=== PATIENT | male | born 1965 | race American Indian/Alaskan Native ===

== ENCOUNTER 2021-06-02 10:20 | Outpatient (CLI) | payer SELFPAY ==
[2021-06-02] MEDS ORDERED: LIDOCAINE (4%) 40 MG/ML TOPICAL SOLN 50 ML BOTTLE TP ONE (12:06)
== END 2021-06-02 10:21 | disposition home or self-care (01) ==
LOC: WOUND 10:20
PROVIDERS: ATTEND Surgery
DX: L97.522 Non-pressure chronic ulcer of other part of left foot with fat layer exposed (principal); L97.512 Non-pressure chronic ulcer of other part of right foot with fat layer exposed; L84 Corns and callosities; I10 Essential (primary) hypertension; Z98.42 Cataract extraction status, left eye; Z98.41 Cataract extraction status, right eye
CPT/HCPCS: 11042; 82962; G0463; 99205

== ENCOUNTER 2021-06-09 10:47 | Outpatient (CLI) | payer SELFPAY ==
[2021-06-09] MEDS ORDERED: LIDOCAINE (4%) 40 MG/ML TOPICAL SOLN 50 ML BOTTLE TP ONE (11:05)
== END 2021-06-09 10:48 | disposition home or self-care (01) ==
LOC: WOUND 10:47
PROVIDERS: ATTEND Surgery
DX: L97.522 Non-pressure chronic ulcer of other part of left foot with fat layer exposed (principal); L97.512 Non-pressure chronic ulcer of other part of right foot with fat layer exposed; L84 Corns and callosities; I10 Essential (primary) hypertension; Z98.42 Cataract extraction status, left eye; Z98.41 Cataract extraction status, right eye
CPT/HCPCS: 82962

== ENCOUNTER 2021-06-11 13:02 | Outpatient (CLI) | payer OTHER ==
--- NOTE | 2021-06-11 17:11 | Vascular Lab Report ---
DUPLEX DOPPLER LOWER EXTREMITY ARTERIAL, BILATERAL INDICATION / CLINICAL INFORMATION: L97.512. TECHNIQUE: Arterial duplex examination of both lower extremities performed using B-mode, color flow a nd spectral Doppler assessment. FINDINGS: RIGHT: - Atherosclerotic Plaque: No significant atherosclerotic plaque. - Elevated Velocity (>200 cm/s): None. - Abnormal Waveform: None. LEFT: - Atherosclerotic Plaque: No significant atherosclerotic plaque. - Elevated Velocity (>200 cm/s): None. - Abnormal Waveform: Abnormal monophasic waveforms are noted in the left dorsalis pedis and anterior tibial arteries, please note these difficult to evaluate secondary to overlying edema. ADDITIONAL FINDINGS: None. Right LAURI: Not measured Left LAURI: Not measured IMPRESSION: 1. Abnormal monophasic waveforms are noted of the left dorsalis pedis and anterior tibial arteries, w hich may be secondary to technical difficulties from overlying edema, otherwise no significant lower extremity peripheral artery disease Ankle-Brachial Index (LAURI): - Calcified arteries > 1.4 - Normal = 0.9-1.4 - Mild PAD = 0.7-0.89 - Moderate PAD = 0.51-0.69 - Severe PAD < 0.5 Doppler Waveform: - Triphasic is normal. - Biphasic is abnormal if clear transition from triphasic signal along vascular tree. - Monophasic is abnormal. Signer Name: Gee Zepeda DO Signed: 06/11/2021 5:07 PM Workstation Name: [id number]
== END 2021-06-11 13:03 | disposition home or self-care (01) ==
LOC: VAS 13:02
PROVIDERS: ATTEND Surgery
DX: L97.512 Non-pressure chronic ulcer of other part of right foot with fat layer exposed (principal); L97.522 Non-pressure chronic ulcer of other part of left foot with fat layer exposed
CPT/HCPCS: 93925

== ENCOUNTER 2021-06-16 11:00 | Outpatient (CLI) | payer SELFPAY ==
[2021-06-16] MEDS ORDERED: LIDOCAINE (4%) 40 MG/ML TOPICAL SOLN 50 ML BOTTLE TP ONE (14:33)
[2021-06-16] MEDS ORDERED: SILVER NITRATE APPLICATOR 1 EA TP ONE (14:33)
== END 2021-06-16 11:01 | disposition home or self-care (01) ==
LOC: WOUND 11:00
PROVIDERS: ATTEND Surgery
DX: L97.512 Non-pressure chronic ulcer of other part of right foot with fat layer exposed (principal); L84 Corns and callosities; I10 Essential (primary) hypertension; Z98.42 Cataract extraction status, left eye; Z98.41 Cataract extraction status, right eye